=== PATIENT | female | born 1945 | race Caucasian/White ===

== ENCOUNTER 2019-07-28 09:08 | Emergency (ER) | payer MEDICARE, SELFPAY ==
[2019-07-28 09:17] VITALS: BP 164/96; PULSE 88; RESP 16; TEMP 36.9; O2SAT 96; BMI 25.8
--- NOTE | 2019-07-28 09:37 | PC.NURSE ---
pt has good pulses in her left arm, good cap. refill. states pain from her elbow up and numbness/tingling from her arm down
--- NOTE | 2019-07-28 09:39 | ED_ITS ---
HPI - Neck Pain/Injury General Chief Complaint: Neck Pain/Injury Stated Complaint: HERNIATED DISK/NECK Time Seen by Provider: 07/28/19 09:20 Source: patient Mode of arrival: Wheelchair Limitations: no limitations History of Present Illness HPI Narrative: Patient comes emergency department complaining of neck and back pain that have been going on for nearly a week. Patient states she has a history of spinal arthritis, but has never had pain that has gotten this bad. She states she was doing some yard work a couple of weeks ago, but otherwise, has not been doing any heavy lifting or other strenuous activity. Patient denies any direct trauma. No fever chills. She states that she has some intermittent numbness of her left arm and hand. She states that certain positions of her his neck make the pain worse. She states the maximum pain is between her left scapula and the spine. She denies any pain in the spine itself. She states she already went to the walk-in clinic and was told she has a ?herniated disc? after x-rays were done. Review of the discharge papers from that visit reveals that the patient was told she has degenerative changes in the spine, without mention of any disc pathology. The patient has been on oxycodone, Flexeril, and prednisone, without relief. She states she has been doing ice and heat at home. No other complaints at this time. Related Data Home Medications Medication Instructions Recorded Confirmed Lactobacillus acidophilus 10 cell PO BID cap 07/29/19 07/29/19 billion cell capsule ascorbic acid (vitamin C) 1,000 mg 2 gram PO DAILY tab 07/29/19 07/29/19 tablet aspirin 81 mg tablet,delayed 81 mg PO DAILY 07/29/19 07/29/19 release cholecalciferol (vitamin D3) 5,000 5,000 unit PO DAILY 07/29/19 07/29/19 unit capsule coenzyme Q10 200 mg capsule 200 mg PO DAILY 07/29/19 07/29/19 cyanocobalamin (vitamin B-12) 1,000 mcg IM QMONTH 07/29/19 07/29/19 1,000 mcg/mL injection solution levothyroxine 100 mcg capsule 100 mcg PO .EVERY OTHER DAY cap 07/29/19 07/29/19 levothyroxine 88 mcg capsule 88 mcg PO .EVERY OTHER DAY cap 07/29/19 07/29/19 lisinopril 2.5 mg tablet 2.5 mg PO DAILY 07/29/19 07/29/19 metoprolol succinate 50 mg 50 mg PO DAILY 07/29/19 07/29/19 tablet,extended release 24 hr niacin 250 mg tablet See Rx Instructions PO DAILY 07/29/19 07/29/19 nitroglycerin 0.4 mg sublingual 0.4 mg SL Q5-15M PRN 07/29/19 07/29/19 tablet omeprazole 20 mg capsule,delayed 20 mg PO DAILY 07/29/19 07/29/19 release rosuvastatin 20 mg tablet 20 mg PO DAILY 07/29/19 07/29/19 Previous Rx's Medication Instructions Recorded ketorolac 10 mg PO TID PRN 5 Days tab 07/28/19 diazepam 10 mg tablet 5 mg PO TID PRN 1 Days #1 tab 07/29/19 lidocaine 5 % topical ointment 1 applic TOP BID-TID PRN #35.44 07/29/19 gram MDD three applications Allergies Allergy/AdvReac Type Severity Reaction Status Date / Time codeine Allergy Verified 07/29/19 10:24 lovastatin Allergy Verified 07/29/19 10:24 Sulfa (Sulfonamide Allergy Verified 07/29/19 10:24 Antibiotics) Review of Systems Constitutional Constitutional: Denies chills, Denies fatigue, Denies fever(s), Denies frequent falls, Denies lethargy and Denies weakness Eyes Eyes: Denies change in vision, Denies eye discharge, Denies irritation and Denies loss of vision ENT Ears, Nose, Mouth, and Throat: Denies change in voice, Denies dizziness, Reports neck pain, Denies sore throat and Denies throat swelling Cardiovascular Cardiovascular: Denies chest pain, Denies irregular heart rhythm, Denies lightheadedness, Denies palpitations, Denies dyspnea, Denies dyspnea on exertion and Denies orthopnea Respiratory Respiratory: Denies cough, Denies dyspnea, Denies dyspnea on exertion and Denies wheezing Gastrointestinal Gastrointestinal: Denies abdominal pain, Denies change in bowel habits, Denies diarrhea, Denies nausea and Denies vomiting Genitourinary Genitourinary: Denies hematuria, Denies flank pain, Denies urinary incontinence and Denies urinary urgency Musculoskeletal Musculoskeletal: Reports back pain, Denies muscle weakness, Reports neck pain, Denies numbness and Denies tingling Integumentary/Breasts Skin/Breast: Denies pruritus, Denies erythema, Denies rash and Denies wounds Neurologic Neurologic: Denies behavioral changes, Denies confusion, Denies dizziness, Denies frequent falls, Denies loss of vision, Denies numbness, Denies tingling and Denies weakness Psychiatric Psychiatric: Denies anxiety, Denies behavioral changes, Denies confusion, Denies depression, Denies homicidal ideation and Denies suicidal ideation Endocrine Endocrine: Denies fatigue, Denies flushing and Denies palpitations Hematologic/Lymphatic Hematologic/Lymphatic: Denies easy bruising Allergic/Immunologic Allergic/Immunologic: Denies urticaria, Denies throat swelling and Denies wheezing Patient History Medical History (Updated 07/29/19 @ 11:09 by ANAMARIA Elder) Arthritis (Acute) Cervical radicular pain (Chronic) Facet arthropathy, cervical (Chronic) Social History Smoking Status: Never smoker Exam Initial Vital Signs Initial Vital Signs: Vital Signs Temperature 98.4 F 07/28/19 09:17 Pulse Rate 88 07/28/19 09:17 Respiratory Rate 16 07/28/19 09:17 Blood Pressure 164/96 H 07/28/19 09:17 Pulse Oximetry 96 07/28/19 09:17 Const General: cooperative and well developed Nutritional Appearance: well nourished Orientation: alert, awake and not confused Other: Patient appears mildly uncomfortable. [facility] Head: normocephalic and atraumatic Ears: external ears normal Nose: external nose normal and No nasal discharge Face and sinus: face symmetric and No dry mucous membranes Mouth: oral mucosae normal and moist mucous membranes Teeth and gingiva: dentition normal Eyes General: appearance normal, both eyes and all related structures Eyelids: eyelids normal Conjunctivae: conjunctivae normal Sclera: sclerae normal Pupils: PERRL EOM: EOM intact bilaterally Neck Neck: normal visual inspection, trachea midline, No lymphadenopathy, No midline deformity and No JVD Lymphatic: No lymphedema Chest Chest: normal inspection of the chest Resp Effort & Inspection: normal respiratory effort, able to speak in complete sentences, no respiratory distress and no use of accessory muscles Auscultation: clear to auscultation bilaterally, no rales, no rhonchi and no wheezes Cardio Rate: regular rate Rhythm: regular rhythm Heart Sounds: no click, no gallops, no murmurs and no rubs Pulses: normal peripheral pulses GI Inspection: non-distended Palpation: soft, no hepatosplenomegaly, No guarding, No pulsatile mass and No tender Back/Spine/Pelvis Back: No CVA tenderness Cervical Spine: cervical ROM normal and No pain with cervical ROM Thoracic/Lumbar Spine: thoracic and lumbar spine normal to inspection Skin General: no rashes or lesions noted, No jaundice and No petechiae Neuro General: alert, oriented x3, gait normal and no focal motor deficits Speech: speech normal Extrem General: full ROM, no clubbing, cyanosis or edema, no pedal edema and no calf tenderness Psych Appearance: well kempt Mental Status: mental status grossly normal Attitude: cooperative Thought Content: normal and suicidality Judgment: judgment good Course Course Course Narrative: Patient was treated symptomatically with Toradol and Dilaudid. I felt her pain was muscular in nature, and I discussed with her that she does not have an obvious mechanism for herniated disc, nor does she have actual spinal pain. However, we have discussed that should the patient wish to have further investigation of this with imaging, that MRI through her primary care physician would be the appropriate avenue. Orders Ordered: Discontinued Medications Hydromorphone HCl (Dilaudid) 1 mg IM NOW ONE Stop: 07/28/19 09:39 Last Admin: 07/28/19 09:59 Dose: 1 mg Documented by: YARED Ketorolac Tromethamine (Toradol) 30 mg IM NOW ONE Stop: 07/28/19 09:39 Last Admin: 07/28/19 09:58 Dose: 30 mg Documented by: YARED Vital Signs Vital signs: Vital Signs - 8 hr 07/28/19 09:17 Temperature 98.4 F Pulse Rate 88 Respiratory Rate 16 Blood Pressure 164/96 H Pulse Oximetry 96 MDM - Neck Pain/Injury Medical Records Attestation: I reviewed the patient's medical records. Discharge Plan Departure Patient Disposition: Home Clinical Impression: Arthritis, Muscle spasm Discharge Date/Time: 07/28/19 11:23 Instructions: DI for Arthritis, DI for Thoracic Back Pain Activity Restrictions/Additional Instructions: Your symptoms are most consistent with spasm of the trapezius muscle of the neck. Your pain and tenderness is located in the muscular area, not in your spine. Given the lack of significant heavy lifting, it is unlikely that you have a herniated disc. If you do, this is a long-term and chronic condition and not a recent or acute condition. Most likely, given that you are already on strong medication, the most helpful thing for your condition would be massage, as we have already discussed. You may continue your medications, but direct manual therapy to help relax your spasm new muscle would probably be more helpful than the meds. Please see your primary doctor if your symptoms continue for more than the next week. Most likely, however, your symptoms will blow up over on their own, given time. Please also make sure that you stretch the area to help relax the spasmed muscle. Prescriptions: New ketorolac 10 mg tablet 10 mg PO TID PRN (Reason: pain) 5 Days RF: 0 No Action ascorbic acid (vitamin C) 1,000 mg tablet 2 gram PO DAILY RF: 0 aspirin 81 mg tablet,delayed release (DR/EC) 81 mg PO DAILY RF: 0 cholecalciferol (vitamin D3) 5,000 unit capsule 5,000 unit PO DAILY RF: 0 coenzyme Q10 200 mg capsule 200 mg PO DAILY RF: 0 cyanocobalamin (vitamin B-12) 1,000 mcg/mL solution 1,000 mcg IM QMONTH RF: 0 Lactobacillus acidophilus 10 billion cell capsule PO BID RF: 0 levothyroxine 88 mcg capsule 88 mcg PO .EVERY OTHER DAY RF: 0 levothyroxine 100 mcg capsule 100 mcg PO .EVERY OTHER DAY RF: 0 lisinopril 2.5 mg tablet 2.5 mg PO DAILY RF: 0 metoprolol succinate 50 mg tablet extended release 24 hr 50 mg PO DAILY RF: 0 nitroglycerin 0.4 mg tablet, sublingual 0.4 mg SL Q5-15M PRNRF: 0 omeprazole 20 mg capsule,delayed release(DR/EC) 20 mg PO DAILY RF: 0 rosuvastatin 20 mg tablet 20 mg PO DAILY RF: 0 niacin 250 mg tablet See Rx Instructions PO DAILY RF: 0 diazepam [Valium] 10 mg tablet 5 mg PO TID PRN (Reason: preprocedural anxiety) 1 Days Qty: 1 RF: 0 lidocaine 5 % ointment 1 applic TOP BID-TID MDD three applications PRN (Reason: lumbar pain) Qty: 35.44 RF: 0 Referrals: Cordelia Hoang ARNP [Primary Care Provider] -
[2019-07-28] MEDS: KETOROLAC 60 MG/2 ML VIAL 30 MG IM (09:58)
[2019-07-28] MEDS: HYDROMORPHONE 1 MG INJ IM (09:59)
[2019-07-28 10:59] VITALS: PULSE 80; O2SAT 98
[2019-07-28 11:23] VITALS: BP 131/67; PULSE 72; RESP 16
== END 2019-07-28 11:23 | disposition home or self-care (01) ==
PROVIDERS: Emergency Provider Emergency Medicine; PCP Nurse Practitioner Family
DX: M54.9 Dorsalgia, unspecified (principal); M54.2 Cervicalgia; M47.9 Spondylosis, unspecified
CPT/HCPCS: 96372; 99282; 99283; J1170; J1885

== ENCOUNTER → 2019-08-05 08:02 | Outpatient (CLI) | payer MEDICARE, SELFPAY ==
--- NOTE | 2019-08-05 08:06 | DI.MRI.S_ITS ---
PROCEDURE: MR CERVICAL SPINE WO CON INDICATIONS: acute cervical radicular pain TECHNIQUE: Noncontrast sagittal T1 spin echo and T2 fast spin echo, sagittal STIR, foraminal oblique sagittal T2 fast spin echo, and axial gradient echo or T2 fast spin echo through the cervical spine. COMPARISON: [facility], CR, XR CERVICAL SPINE 2 OR 3 VIEWS, 07/24/2019, 10:10. FINDINGS: Image quality: Degraded by motion artifact. Alignment and Curvature: There is loss of normal cervical lordosis. There is mild grade 1 anterolisthesis of C4 on C5. Mild grade 1 retrolisthesis of C5 on C6 and C6 on C7. Bone Marrow: Marrow demonstrates normal overall signal. Spinal Cord: Visualized spinal cord has normal size and signal. No cerebellar tonsillar herniation. Paraspinous Soft Tissues: No paravertebral masses. Prevertebral soft tissues are normal in thickness. C2-C3: Moderate disc desiccation. Mild diffuse disc bulge with small superimposed central protrusion. Mild facet hypertrophy bilaterally. Mild canal stenosis. Mild right foraminal stenosis. No left foraminal stenosis. C3-C4: Moderate disc desiccation. Mild diffuse disc bulge. Mild bilateral facet hypertrophy. Mild canal stenosis. Moderate left and mild right foraminal stenosis. C4-C5: Moderate disc desiccation. Mild disc height loss. Mild diffuse disc bulge with superimposed broad-based central protrusion. Moderate facet hypertrophy bilaterally. Moderate canal stenosis. Severe right and mild left foraminal stenosis. Right C5 nerve root compression. C5-C6: Moderate disc height loss and desiccation. Moderate diffuse disc bulge. Moderate facet hypertrophy bilaterally. Moderate to severe canal stenosis. Mild cord flattening. Severe bilateral foraminal stenosis with bilateral C6 nerve root compression. C6-C7: Moderate disc height loss and desiccation. Mild diffuse disc bulge. Mild facet hypertrophy bilaterally. Moderate canal stenosis. Severe bilateral foraminal stenosis. Bilateral C7 nerve root compression. C7-T1: Moderate disc desiccation. Mild diffuse disc bulge. Mild bilateral facet hypertrophy. Mild canal stenosis. Mild right foraminal stenosis. No left foraminal stenosis. IMPRESSION: 1. Multilevel degenerative disc and facet disease, as well as uncovertebral hypertrophy. 2. Multilevel canal stenoses, worst at C5-C6, where there is mild cord flattening present. 3. Multilevel foraminal stenoses, worst at C4-C5, C5-C6, and C6-C7, where there is associated intraforaminal neural compression. Recommend correlation with clinical symptoms to ascertain relevance of these findings. Dictated by: Flash Titus M.D. on 08/05/2019 at 11:04 Approved by: Flash Titus M.D. on 08/05/2019 at 11:36
== END ==
PROVIDERS: PCP Nurse Practitioner Family; Visit Provider Registered Nurse
DX: M50.11 Cervical disc disorder with radiculopathy, high cervical region (principal); M48.02 Spinal stenosis, cervical region; M62.838 Other muscle spasm; M43.12 Spondylolisthesis, cervical region
CPT/HCPCS: 72141

== ENCOUNTER → 2021-07-20 09:36 | Outpatient (CLI) | payer MEDICARE, SELFPAY ==
--- NOTE | 2021-07-20 | DI.US.S_ITS ---
PROCEDURE: US CAROTID DOPPLER BI INDICATIONS: BILATERAL CAROTID ARTERY STENOSIS TECHNIQUE: Color and pulse Doppler interrogation was performed of both carotid systems, with image documentation and velocity measurements. COMPARISON: [facility], MR, MR ANGIO HEAD WO CON, 04/21/2015, 15:10. [facility], CT, CT HEAD WITHOUT CONTRAST, 11/02/2020, 10:02. [facility], US, CAROTID ARTERY DOPPLER LTD, 06/27/2013, 10:04. FINDINGS: Stenosis calculations are based on SRU (Society of Radiologists in Ultrasound) criteria. The flow velocities and the arterial waveforms are normal within both carotid arterial systems. Atherosclerotic plaque is seen on both sides. The estimated degree of internal carotid artery stenosis is less than 50%. Antegrade flow is confirmed within both vertebral arteries. IMPRESSION: No hemodynamically significant stenosis is seen. Similar to 2013. Atherosclerotic plaque is noted bilaterally. Dictated by: Clark Robles M.D. on 07/20/2021 at 12:19 Approved by: Clark Robles M.D. on 07/20/2021 at 12:20
== END ==
PROVIDERS: PCP Nurse Practitioner Family; Referring Provider Internal Medicine Cardiovascular Disease; Visit Provider Internal Medicine Cardiovascular Disease
DX: I65.23 Occlusion and stenosis of bilateral carotid arteries (principal)
CPT/HCPCS: 93880

== ENCOUNTER 2022-12-05 14:08 | Emergency (ER) | payer MEDICARE, SELFPAY ==
[2022-12-05 14:11] VITALS: BP 174/90; PULSE 81; RESP 16; TEMP 36.5; O2SAT 95; BMI 25.0
== END 2022-12-05 16:14 | disposition left against medical advice (07) ==
PROVIDERS: Emergency Provider Emergency Medicine; PCP Nurse Practitioner Family
CPT/HCPCS: 99281

== ENCOUNTER → 2023-11-02 11:06 | Outpatient (CLI) | payer MEDICARE, SELFPAY ==
[2023-11-02 13:09] LABS: Alanine Aminotransferase 15 IU/L (<35); Albumin 4.2 g/dL (3.5-5.0); Albumin Globulin Ratio 1.4 (1.0-2.8); Alkaline Phosphatase 64 U/L (38-126); Aspartate Aminotransferase 24 IU/L (14-36); BUN Creatinine Ratio 14.5 (6-22); Bilirubin Total 0.6 mg/dL (0.2-1.3); Blood Urea Nitrogen 12 mg/dL (7-17); Calcium 10.2 mg/dL (8.4-10.2); Carbon Dioxide 25 mmol/L (22-32); Chloride 106 mmol/L (98-107); Cholesterol 278 mg/dL (140-199); Estimated Glomerular Filt Rate > 60 mL/min (>60); Glucose 107 mg/dL (80-110); HDL Cholesterol 83 mg/dL (40-60); HEMOLYSIS < 15 (0-50); LDL Cholesterol Calculated 150 mg/dL (<100); Sodium 138 mmol/L (137-145); Total Protein 7.2 g/dL (6.3-8.2); Triglycerides 225 mg/dL (35-150)
== END ==
PROVIDERS: PCP Nurse Practitioner Family; Referring Provider Nurse Practitioner; Visit Provider Nurse Practitioner
DX: E78.5 Hyperlipidemia, unspecified (principal); I10 Essential (primary) hypertension
CPT/HCPCS: 36415; 80053; 80061

== ENCOUNTER → 2024-01-19 12:28 | Outpatient (CLI) | payer MEDICARE, SELFPAY | PROVIDERS: PCP Nurse Practitioner Family; Visit Provider Nurse Practitioner Family | DX: R30.0 Dysuria (principal) | CPT/HCPCS: 87086 ==

== ENCOUNTER 2024-04-13 12:05 | Emergency (ER) | payer MEDICARE, SELFPAY ==
[2024-04-13 12:18] VITALS: BP 136/65; PULSE 77; RESP 17; TEMP 36.7; O2SAT 97; BMI 25.0
--- NOTE | 2024-04-13 13:15 | ED.EXTPRO ---
HPI - Extremity Problem General Chief complaint: Extremity Problem,Nontraumatic Stated complaint: Lower left leg, thinks she has a blood clot Time Seen by Provider: 04/13/24 13:06 Source: patient Mode of arrival: Ambulatory History of Present Illness HPI Narrative: Patient is a 78-year-old female who is here for evaluation of a very localized pinpoint discomfort to the front of her left lower extremity. States she started noticing it over the past 24-36 hours. No skin changes over the area. She does have history of neuropathy but states this is different than that. No chest pain. No shortness of breath. No trauma. She has been ambulatory. She took some aspirin last evening with some improvement of the symptoms. Related Data Home Medications Medication Instructions Recorded Confirmed Lactobacillus acidophilus 10 cell PO BID DAILY 07/29/19 01/19/24 billion cell capsule ascorbic acid (vitamin C) 1,000 mg 2 gram PO DAILY 07/29/19 01/19/24 tablet aspirin 81 mg tablet,delayed 81 mg PO DAILY 07/29/19 07/29/19 release cholecalciferol (vitamin D3) 125 5,000 unit PO DAILY 07/29/19 01/19/24 mcg (5,000 unit) capsule coenzyme Q10 200 mg capsule 200 mg PO DAILY 07/29/19 01/19/24 cyanocobalamin (vitamin B-12) 1,000 mcg IM QMONTH 07/29/19 01/19/24 1,000 mcg/mL injection solution levothyroxine 100 mcg capsule 100 mcg PO .EVERY OTHER DAY 07/29/19 01/19/24 lisinopril 2.5 mg tablet 2.5 mg PO DAILY 07/29/19 01/19/24 metoprolol succinate 50 mg 50 mg PO DAILY 07/29/19 01/19/24 tablet,extended release 24 hr nitroglycerin 0.4 mg sublingual 0.4 mg sublingual Q5-15M PRN 07/29/19 01/19/24 tablet omeprazole 20 mg capsule,delayed 20 mg PO DAILY 07/29/19 01/19/24 release rosuvastatin 20 mg tablet 20 mg PO DAILY 07/29/19 01/19/24 Previous Rx's Medication Instructions Recorded lidocaine 5 % topical ointment 1 applic topical BID-TID PRN 07/29/19 lumbar pain #35.44 grams Allergies Allergy/AdvReac Type Severity Reaction Status Date / Time codeine AdvReac Hives Verified 04/13/24 12:18 lovastatin AdvReac muscle Verified 04/13/24 12:18 aches Sulfa (Sulfonamide AdvReac Rash Verified 04/13/24 12:18 Antibiotics) Review of Systems Review of Systems ROS Unobtainable: All systems reviewed & are unremarkable except as noted in HPI and below Patient History Medical History UTI (urinary tract infection) Irritation of both eyes Facet arthropathy, cervical Cervical radicular pain Arthritis Social History Smoking Status: Never smoker Smoking Status: Never smoker Substance Use Type: does not use Exam Initial Vital Signs Initial Vital Signs: Vital Signs Temperature 98.1 F 04/13/24 12:18 Pulse Rate 77 04/13/24 12:18 Respiratory Rate 17 04/13/24 12:18 Blood Pressure 136/65 04/13/24 12:18 Pulse Oximetry 97 04/13/24 12:18 Oxygen Delivery Method Room Air 04/13/24 12:18 Const General: cooperative, healthy appearing and comfortable Resp Effort & Inspection: normal respiratory effort Auscultation: clear to auscultation bilaterally Cardio Rate: regular rate Rhythm: regular rhythm Skin General: no rashes or lesions noted Extrem Other: Patient has a relatively pinpoint area of tenderness on the anterior lateral aspect of the left tibia. It encompasses an area of about 2 cm x 2 cm. It is tender to palpation. No tenderness of the left calf for behind the left knee. Course Vital Signs Vital signs: Vital Signs - 8 hr 04/13/24 12:18 Temperature 98.1 F Pulse Rate 77 Respiratory Rate 17 Blood Pressure 136/65 Pulse Oximetry 97 Oxygen Delivery Method Room Air MDM - Extremity (Nontraumatic) MDM Narrative Medical decision making narrative: Patient's symptoms today are not consistent with a fracture. Not consistent with compartment syndrome. Not consistent with cellulitis. Not consistent with DVT. Relatively pinpoint tenderness to palpation anterior lateral left leg. Unsure the exact etiology although I did discuss all this with the patient. I do feel that we can hold on any radiologic studies for now. She stated that the aspirin that she took yesterday did improve her symptoms somewhat so she can continue to take this if needed. She was given return precautions and follow-up instructions. She expressed understanding and agreement. Discharge Plan Departure Patient Disposition: Home Clinical Impression: Leg pain Instructions: DI for Leg Pain Activity Restrictions/Additional Instructions: I do recommend that you keep all of your scheduled medical appointments. You can continue to take aspirin as needed for the discomfort. Return to the emergency department for new symptoms. Prescriptions: No Action ascorbic acid (vitamin C) 1,000 mg tablet 2 gram PO DAILY aspirin 81 mg tablet,delayed release (DR/EC) 81 mg PO DAILY cholecalciferol (vitamin D3) 5,000 unit capsule 5,000 unit PO DAILY coenzyme Q10 200 mg capsule 200 mg PO DAILY cyanocobalamin (vitamin B-12) 1,000 mcg/mL solution 1,000 mcg IM QMONTH Lactobacillus acidophilus 10 billion cell capsule PO BID levothyroxine 100 mcg capsule 100 mcg PO .EVERY OTHER DAY lisinopril 2.5 mg tablet 2.5 mg PO DAILY metoprolol succinate 50 mg tablet extended release 24 hr 50 mg PO DAILY nitroglycerin 0.4 mg tablet, sublingual 0.4 mg SL Q5-15M PRN omeprazole 20 mg capsule,delayed release(DR/EC) 20 mg PO DAILY rosuvastatin 20 mg tablet 20 mg PO DAILY lidocaine 5 % ointment 1 applic TOP BID-TID MDD three applications PRN (Reason: lumbar pain) Qty: 35.44 0RF Referrals: Cordelia Hoang ARNP [Primary Care Provider] - Stand Alone Forms: Patient Portal/API
== END 2024-04-13 13:30 | disposition home or self-care (01) ==
PROVIDERS: Emergency Provider Emergency Medicine; PCP Nurse Practitioner Family
DX: M79.605 Pain in left leg (principal)
CPT/HCPCS: 99281